=== PATIENT | male | born 1950 | race Caucasian/White ===

== ENCOUNTER 2023-06-13 14:30 | Outpatient (RCR) | payer MEDICARE, SELFPAY ==
--- NOTE | 2023-05-16 12:26 | PTOPEVAL1 ---
Assessment and note entered by Cecilio Loja, PT Evaluation Information Assessment Status Evaluation Diagnosis Right shoulder impingement syndrome Onset April 2023 Subjective Information Reports that he has had neck issues for decades. Has not had any shoulder issues until more recently. He is getting tingling and pain in his biceps even at rest. He is R handed. He bought a new house in November and has done a lot of remodeling and moving and lifting. He has started some light body weight resisted workouts as well. Overall he is concerned for his neck. Pain will occasionally radiate all the way into the fingertips. Reported Pain Level Pain Score 2: Self Report Assessment PT Clinical Summary Patient presents with signs and symptoms consistent with cervical radiculopathy. Shoulder mobility and strength very functional at this time . There are some minor symptoms of possible impingement,, but reported pain symptoms into hand more consistent with cervical issues. Will benefit from skilled therapy to address these deficits. Plan of Care Interventions Electrical Stimulation,Hot Pack/Cold Pack,Manual Therapy,Mechanical Traction,Neuro Re-education, Therapeutic Activities,Therapeutic Exercise PT Services Indicated Yes Treatment Frequency and 2x/week for 8 visits Duration These treatments will address the objective and functional deficits as defined above. The patient will be advanced safely and appropriately in order for the patient to progress towards his/her prior level of function. Additional exercises will be introduced and as well as a comprehensive home exercise program upon discharge, if needed, ?to ensure carryover of functional gains achieved in the clinic. This treatment plan has been reviewed and agreement upon by the patient.
--- NOTE | 2023-05-16 12:26 | OPREHPOC ---
Outpatient Therapy Plan of Care This is a Multidisciplinary Plan of Care that may contain components documented by all disciplines (PT, OT, and ST.) PT Problem 1 PT Problem #1 Knowledge Deficit PT Goal 1 Goal [place] with HEP Target Visit 4 PT Problem 2 PT Problem #2 Pain PT Goal 1 Goal Patient will report no increased pain with cervical extension activity to improve facet glide Target Visit 4 PT Goal 2 Goal Report no radicular symptoms past shoulder for reduced cervical impingement Target Visit 8 PT Problem 3 PT Problem #3 Impaired Range of Motion PT Goal 1 Goal Improve cervical extension to 40 degrees without pain for improved facet glide with cervical base stability Target Visit 8 PT Goal 2 Goal Improve will cervical rotation to 60 degrees to improve functional cervical motion and facet glide Target Visit 8
--- NOTE | 2023-06-13 15:42 | PTOPDC ---
Assessment and note entered by Cecilio Loja, PT Evaluation Information Assessment Status Discharge Diagnosis Right shoulder impingement syndrome Onset April 2023 Subjective Information Reports that since starting therapy he feels he is spotty from day to day. Sometimes he feels better but overall does not feel he is exceptionally better from when he first started. He still has some tingling in the left hand although it is much less frequently. Overall does feel he is sleeping a bit better. He reports that he has not had imaging for a few years, but the ;last time he had it was for potential trigeminal neuralgia in which the likely were not looking at his neck. Patient reports that he is apprehensive of needles but may be open to trying injections if warranted . Would like to discharge to [facility] at this time with potential follow up with neurology for updated imaging. Reported Pain Level Pain Score 0: Self Report Assessment PT Clinical Summary Patient has seen some but minimal improvement in cervical ROM at this time. We did see improvement in major problem areas of cervical extension and rotation, the latter of which presenting with a tight end feel, non painful. Patient has not had recent imaging in last 4 years, and even at this time likely did not inspect lower cervical spine to assessed for possible discogenic infringement or stenotic impingement. We discussed heavily the next moves to assess progress and discussed potential of both MRI and injection if possible from MD to assess between transient inflammatory issues and structural issues. At this point I would be leaning towards the latter based on chronic nature and visible postural changes. Patient will continue HEP to assist with postural correction per request. Plan of Care PT Services Indicated D/C to [facility]
--- NOTE | 2023-06-13 15:43 | OPREHPOC ---
Outpatient Therapy Plan of Care This is a Multidisciplinary Plan of Care that may contain components documented by all disciplines (PT, OT, and ST.) PT Problem 1 PT Problem #1 Knowledge Deficit PT Goal 1 Goal [place] with HEP Target Visit 4 Progress Met PT Problem 2 PT Problem #2 Pain PT Goal 1 Goal Patient will report no increased pain with cervical extension activity to improve facet glide Target Visit 4 Progress Met PT Goal 2 Goal Report no radicular symptoms past shoulder for reduced cervical impingement Target Visit 8 Progress Not Met PT Problem 3 PT Problem #3 Impaired Range of Motion PT Goal 1 Goal Improve cervical extension to 40 degrees without pain for improved facet glide with cervical base stability Target Visit 8 Progress Met PT Goal 2 Goal Improve will cervical rotation to 60 degrees to improve functional cervical motion and facet glide Target Visit 8 Progress Not Met
== END 2023-06-13 16:06 | disposition home or self-care (01) ==
LOC: ANHGOSHPT 14:30
PROVIDERS: PCP Family Medicine
DX: M75.41 Impingement syndrome of right shoulder (principal)
CPT/HCPCS: 97012; 97110; 97112; 97140; 97161; 97530

== ENCOUNTER 2024-02-09 08:58 | Outpatient (CLI) | payer MEDICARE, SELFPAY ==
--- NOTE | ~2024-02-09 | CT_ITS ---
EXAMINATION: CT cervical spine wo con DATE: 02/09/2024 09:12 INDICATION: Cervical stenosis. TECHNIQUE: Computed tomography (CT) of the cervical spine was performed without intravenous contrast. Automated exposure control and iterative reconstruction technique were employed. The dose-length pro duct was 312.60 mGy-cm. COMPARISON: None FINDINGS: There is mild scarring at the lung apices. There is 6 degrees dextrocurvature of cervical s pine. Vertebral body heights are normal. There is moderately decreased disc height at C3-C4 and sever sabina decreased disc height from C4-C5 through C6-C7. Osseous central spinal canal is developmentally s mall. The following disc levels are specifically discussed: C2-C3: There is mild bilateral uncovertebral joint osteoarthritis. There is severe bilateral facet serena int osteoarthritis. There is mild bilateral neural foraminal stenosis. There is no central canal sten osis. C3-C4: There is severe bilateral uncovertebral joint osteoarthritis. There is severe bilateral facet joint osteoarthritis. There is moderate right and mild left neural foraminal stenosis. There is mild central canal stenosis. C4-C5: There is severe bilateral uncovertebral joint osteoarthritis. There is severe bilateral facet joint osteoarthritis. There is moderate right and mild left neural foraminal stenosis. There is mild central canal stenosis. C5-C6: There is severe bilateral uncovertebral joint osteoarthritis. There is severe right and modera te left facet joint osteoarthritis. There is mild bilateral neural foraminal stenosis. There is mild central canal stenosis. C6-C7: There is severe bilateral uncovertebral joint osteoarthritis. There is mild right and severe l eft facet joint osteoarthritis. There is mild bilateral neural foraminal stenosis. There is mild cent ral canal stenosis. C7-T1: There is no uncovertebral joint osteoarthritis. There is severe bilateral facet joint osteoart hritis. There is mild left neural foraminal stenosis. There is no central canal stenosis. IMPRESSION: 1. Severe cervical spondylosis. Reviewed, dictated and finalized at location A. TENSION TESTER
== END 2024-02-09 08:59 | disposition home or self-care (01) ==
LOC: GOSHIMG 09:00
PROVIDERS: PCP Family Medicine
DX: M48.02 Spinal stenosis, cervical region (principal); M47.22 Other spondylosis with radiculopathy, cervical region
CPT/HCPCS: 72125

== ENCOUNTER 2024-06-14 16:58 | Emergency (ER) | payer MEDICARE, SELFPAY ==
--- NOTE | 2024-06-14 17:06 | ED_ITS ---
HPI - General Adult General Chief complaint: Skin/Abscess/Foreign Body Stated complaint: KNOTS ON ARM Time Seen by Provider: 06/14/24 17:20 Source: patient Mode of arrival: ambulatory Limitations: no limitations History of Present Illness HPI narrative: 74-year-old male presents with concern for bumps on his left forearm. Reports that he has had an enlarged vein there for a long time that may have had some bumps on it but they feel like they have gotten larger. He denies redness, warmth. Reports mild tenderness on the larger bump that is distal. He denies any swelling in the hand or wrist. MD complaint: knots on forearm Related Data Allergies Allergy/AdvReac Type Severity Reaction Status Date / Time streptomycin Allergy Unknown Unknown Verified 06/14/24 17:20 SURGICAL TAPE Allergy Rash Uncoded 06/14/24 17:20 Review of Systems Review of Systems: CONSTITUTIONAL: Denies malaise, chills, sweats, or fever. SKIN: Denies rash or itching. MUSCULOSKELETAL: Reports several knots on his left forearm All systems reviewed & are unremarkable except as noted in HPI and below PMFSH Comments At time of signature, agree with nursing past medical, surgical, social and family history. There is no relevant family history pertinent to the presenting complaint Exam Narrative: GENERAL: Well-appearing, well-nourished, and in no acute distress. HEAD: Normocephalic, atraumatic. EYES: PERRLA, sclera clear ENT: Nares clear. Mucous membranes moist. NECK: Supple. CHEST: No respiratory distress. Speaks in full sentences. HEART: Regular rate and rhythm. No murmur heard. Normal peripheral pulses. EXTREMITIES: Left upper extremity has grossly Normal range of motion. No edema. Normal strength and sensation. Palpable and visible varicose vein noted to the left forearm, palpable, mobile, only mildly tender cyst like nodule is noted distally. There is no redness, warmth, induration. SKIN: Warm, dry, no visible rash. NEURO: Alert and oriented x3. No focal deficits. Cranial nerves II through XII grossly intact PSYCH: Normal mood and affect Course Course Emergency Course: Patient is aware of diagnosis, understands and agrees to treatment plan. Ant icipatory guidance given. Patient agrees to follow-up as directed and is aware of reasons to seek care at the emergency department. Portions of this record may have been created with voice recognition software Level of Care: Express Care Visit Vital Signs Vital signs: Reviewed. Medical Decision Making MDM Narrative Medical decision making narrative: The patient was evaluated by myself in the [facility] care. History is obtained from patient who is an independent historian and physical exam was performed.? Available medical records were reviewed at this time. ? Exam findings show no acute concerns or changes; patient is non-toxic appearing and is in no distress. Patient is appropriate for outpatient treatment and follow-up. ? I have evaluated and discussed social determinants of health with the patient that could potentially impact subsequent diagnosis and treatment plans. ? Differential diagnosis and treatment plan were discussed with the patient. Patient agrees with discussion and after shared medical decision making agrees with plan of care. All questions were answered to the patient's satisfaction. Critical Care Time Critical Care Time Critical Care Time: No Discharge Plan Discharge Clinical Impression: Varicose veins of left upper extremity Patient Disposition: Home Condition: Stable Instructions: General Patient Instructions Additional Instructions: 1) Please follow-up with your primary care doctor in the next 1-2 days. 2) If you have any worsening of symptoms or any other urgent concerns please go to the ER. 3) Please continue taking your home medications as usual. Patient Language: Danish Follow-up/Referrals: Wander,Karlos Meredith DO [Primary Care Provider] - Time of Disposition: 17:29
[2024-06-14 17:08] VITALS: BP 120/77; PULSE 63; RESP 16; TEMP 36.4; O2SAT 100
== END 2024-06-14 17:36 | disposition home or self-care (01) ==
PROVIDERS: Emergency Provider Nurse Practitioner; PCP Family Medicine
DX: I86.8 Varicose veins of other specified sites (principal)
CPT/HCPCS: 99202; G0463

== ENCOUNTER 2025-01-03 09:06 | Outpatient (CLI) | payer MEDICARE, SELFPAY ==
--- NOTE | ~2025-01-03 | MR_ITS ---
EXAMINATION: MR cervical spine wo con DATE: 01/03/2025 09:44 INDICATION: Cervical stenosis TECHNIQUE: Magnetic resonance imaging (MRI) of the cervical spine was performed without intravenous contrast. Sequences included sagittal T2-weighted FSE, sagittal T2-weighted FS FSE, sagittal T1-weighted FSE, axial MERGE and axial T2- weighted FSE. COMPARISON: CT dated 02/09/2024 FINDINGS: 2 mm retrolisthesis C6 on C7. Vertebral body heights are normal. T1 hyperintense C6 hemangioma. Bone marrow signal intensity is otherwise normal. Mild disc height loss at C3-C4, moderate disc height loss at C4-C5 and moderate to severe disc height loss at C5-C6 and C6-C7. Cord signal intensity is normal. Cervical soft tissues are unremarkable. The following disc levels are specifically discussed: C2-C3: The disc does not extend beyond the endplate margin. There is mild bilateral uncovertebral joint osteoarthritis. There is severe bilateral facet joint osteoarthritis. There is mild to moderate bilateral neural foraminal stenosis. There is no central canal stenosis. C3-C4: Disc is bulging. There is severe bilateral uncovertebral joint osteoarthritis. There is severe bilateral facet joint osteoarthritis. There is moderate bilateral neural foraminal stenosis. There is mild central canal stenosis. C4-C5: Disc is bulging. There is severe bilateral uncovertebral joint osteoarthritis. There is severe bilateral facet joint osteoarthritis. There is moderate right and mild to moderate left neural foraminal stenosis. There is mild central canal stenosis. C5-C6: Disc is bulging. There is severe bilateral uncovertebral joint osteoarthritis. There is severe bilateral facet joint osteoarthritis. There is moderate bilateral neural foraminal stenosis. There is mild central canal stenosis. C6-C7: Disc is bulging. There is severe bilateral uncovertebral joint osteoarthritis. There is mild right and moderate left facet joint osteoarthritis. There is moderate bilateral neural foraminal stenosis. There is mild central canal stenosis. C7-T1: The disc does not extend beyond the endplate margin. There is mild bilateral uncovertebral joint osteoarthritis. There is severe left and moderate right facet joint osteoarthritis. There is mild left neural foraminal stenosis. There is no central canal stenosis. IMPRESSION: 1. Moderate to severe cervical spondylosis with some interval progression in bilateral multilevel moderate neural foraminal stenosis. Reviewed, dictated and finalized at location A. SITIONAL STUDIES INSTRUCTOR IMPRESSION: 1. Moderate to severe cervical spondylosis with some interval progression in bi lateral multilevel moderate neural foraminal stenosis.
== END 2025-01-03 09:07 | disposition home or self-care (01) ==
PROVIDERS: PCP Neurological Surgery; Visit Provider Neurological Surgery
DX: R29.898 Other symptoms and signs involving the musculoskeletal system (principal); M47.892 Other spondylosis, cervical region
CPT/HCPCS: 72141